=== PATIENT | female | born 2000 | race Native Hawaiian/Other Pacific Islander ===

== ENCOUNTER 2019-09-12 16:14 | Emergency (ER) | payer SELFPAY ==
[2019-09-12 16:43] LABS: BASOPHILS # (AUTO) 0.1 10^3/uL (0.0-0.1); BASOPHILS % (AUTO) 0.5 %; EOSINOPHILS # (AUTO) 0.1 10^3/uL (0.0-0.7); EOSINOPHILS % (AUTO) 0.3 %; HGB - HEMOGLOBIN 14.1 g/dL (12.0-16.0); LYMPHOCYTES % (AUTO) 6.3 %; MEAN CORPUSCULAR HEMOGLOBIN 30.9 pg (27.0-31.0); MEAN CORPUSCULAR HGB CONC 32.7 g/dL (32.0-36.0); MEAN CORPUSCULAR VOLUME 94.3 fL (81.0-99.0); MEAN PLATELET VOLUME 7.7 fL (7.9-10.8); MONOCYTES # (AUTO) 1.3 10^3/uL (0.0-1.0); MONOCYTES % (AUTO) 8.6 %; NEUTROPHILS # (AUTO) 12.8 10^3/uL (1.5-6.6); NEUTROPHILS % (AUTO) 83.6 %; PLT - PLATELET COUNT 253 10^3/uL (130-450); RED BLOOD COUNT 4.57 10^6/uL (4.20-5.40); RED CELL DISTRIBUTION WIDTH 12.8 % (12.0-15.0); WHITE BLOOD COUNT 15.3 x10^3/uL (4.8-10.8)
[2019-09-12 16:56] LABS: ALBUMIN 3.9 g/dL (3.2-5.5); BILIRUBIN,TOTAL 0.8 mg/dL (0.2-1.0); CALCIUM 8.9 mg/dL (8.5-10.3); CREATININE 0.8 mg/dL (0.4-1.0); TOTAL PROTEIN 7.7 g/dL (6.7-8.2)
[2019-09-12] MEDS ORDERED: HYDROmorphone 1 MG/ML CARPUJECT IVP STA (17:25)
[2019-09-12] MEDS ORDERED: SODIUM CHLORIDE 0.9% 1,000 ML IV ONE (17:29)
--- NOTE | 2019-09-12 17:29 | ED Physician Documentation ---
History of Present Illness - Stated complaint Stated Complaint: RLQ PX, NAUSEA, FEVER, CHILLS - Chief complaint Chief Complaint: Abd Pain - History obtained from History obtained from: Patient, Friend - History of Present Illness Timing: Last night Pain level max: 7 Pain level now: 7 - Additonal information Additional information: 19-year-old female presents to the emergency department with periumbilical pain that started last night and is now moved to the right lower quadrant. Worse with movement and palpation. Better with rest. Decreased appetite today. Has felt feverish at home. Mild nausea but no vomiting. No vaginal bleeding or discharge. Denies any possibility of . Denies any STD exposure. Review of Systems Ten Systems: 10 systems reviewed and negative Constitutional: denies: Chills Ears: denies: Ear pain Nose: denies: Rhinorrhea / runny nose, Congestion Respiratory: denies: Cough GI: denies: Vomiting, Diarrhea, Hematemesis : denies: Dysuria, Frequency, Hesitancy, Hematuria, Now EGA Skin: denies: Rash Musculoskeletal: denies: Neck pain, Back pain Neurologic: denies: Headache PD PAST MEDICAL HISTORY - Past Medical History Past Medical History: No - Past Surgical History Past Surgical History: No - Present Medications Home Medications: Ambulatory Orders Medication Instructions Recorded Confirmed Cefdinir 300 mg PO BID #28 capsule 09/12/19 Ondansetron Odt [Zofran] 4 mg TL Q6H PRN #10 tablet 09/12/19 Oxycodone HCl/Acetaminophen 1 - 2 each PO Q6H PRN #14 tablet 09/12/19 [Percocet 5-325 mg Tablet] - Allergies Allergies/Adverse Reactions: Allergies Allergy/AdvReac Type Severity Reaction Status Date / Time No Known Drug Allergies Allergy Verified 09/12/19 16:18 - Living Situation Living Situation: reports: With family Living Arrangement: reports: At home - Social History Does the pt smoke?: No Does the pt have substance abuse?: No - Family History Family history: reports: Non contributory PD ED PE NORMAL - Vitals Vital signs reviewed: Yes - General General: Alert and oriented X 3, No acute distress, Well developed/nourished - HEENT HEENT: Moist mucous membranes - Neck Neck: Supple, no meningeal sign - Cardiac Cardiac: RRR, Strong equal pulses - Respiratory Respiratory: No respiratory distress, Clear bilaterally - Abdomen Abdomen: Soft, Non distended, Other (Tender to palpation right lower quadrant at McBurney's point. Positive Rovsing, obturator and psoas signs) - Back Back: No CVA TTP, No spinal TTP - Derm Derm: Warm and dry - Extremities Extremities: No edema - Neuro Neuro: Alert and oriented X 3 - Psych Psych: Normal mood, Normal affect Results - Vitals Vitals: Vital Signs - 24 hr 09/12/19 09/12/19 09/12/19 16:18 17:40 19:09 Temperature 36.9 C 36.9 C 38.5 C H Heart Rate 130 H 122 H Respiratory 14 16 Rate Blood Pressure 111/74 115/96 H O2 Saturation 100 98 09/12/19 19:15 Temperature Heart Rate 138 H Respiratory 22 Rate Blood Pressure 118/69 O2 Saturation 98 Oxygen O2 Source Room air - Labs Labs: Laboratory Tests 09/12/19 09/12/19 09/12/19 16:40 16:40 18:03 WBC 15.3 H RBC 4.57 Hgb 14.1 Hct 43.1 MCV 94.3 MCH 30.9 MCHC 32.7 RDW 12.8 Plt Count 253 MPV 7.7 L Neut # (Auto) 12.8 H Lymph # (Auto) 1.0 L [place] # (Auto) 1.3 H Eos # (Auto) 0.1 Baso # (Auto) 0.1 Absolute Nucleated RBC 0.00 Nucleated RBC % 0.0 Sodium 135 Potassium 3.7 Chloride 101 Carbon Dioxide 24 Anion Gap 10.0 BUN 8 Creatinine 0.8 Estimated GFR (MDRD) 91 Glucose 110 H Calcium 8.9 Total Bilirubin 0.8 AST 18 ALT 16 Alkaline Phosphatase 53 Total Protein 7.7 Albumin 3.9 Globulin 3.8 Albumin/Globulin Ratio 1.0 Lipase 27 Urine Color YELLOW Urine Clarity CLEAR Urine pH 7.0 Ur Specific [place] <=1.005 Urine Protein NEGATIVE Urine Glucose (UA) NEGATIVE Urine Ketones NEGATIVE Urine Occult Blood MODERATE H Urine Nitrite NEGATIVE Urine Bilirubin NEGATIVE Urine Urobilinogen 0.2 (NORMAL) Ur Leukocyte Esterase LARGE H Urine RBC 0-5 Urine WBC >25 H Urine WBC Clumps PRESENT Ur Squamous Epith Cells NONE SEEN Urine Bacteria None Seen Ur Microscopic Review INDICATED Urine Culture Comments INDICATED - Rads (name of study) CT abdomen pelvis Radiology: Prelim report reviewed, EMP read contemporaneously, See rad report (Right ureteric mucosal hyperenhancement and pelvic mucosal hyperenhancement, suggestive of pyelitis. Patchy ill-defined foci in right renal parenchyma are concerning for infectious pathology (acute pyelonephritis).) PD MEDICAL DECISION MAKING - ED course Complexity details: reviewed results, re-evaluated patient, considered differential, d/w patient, d/w family ED course: Patient with what appears to be pyelonephritis. Given Rocephin and will place on cefdinir. She is well-appearing, nontoxic. Afebrile. Feels better after pain meds, IV fluids and Rocephin. Will place her on pain medication, nausea medication and antibiotics for home. Patient counseled regarding signs and symptoms for which I believe and urgent re-evaluation would be necessary. Patient with good understanding of and agreement to plan and is comfortable going home at this time This document was made in part using voice recognition software. While efforts are made to proofread this document, sound alike and grammatical errors may occur. Appendix is normal on CT scan Departure - Departure Disposition: 01 Home, Self Care Clinical Impression: Pyelonephritis Condition: Good Instructions: ED Kidney Infec Female Follow-Up: your,doctor in 1 week if not better [Other] Prescriptions: Cefdinir 300 mg PO BID #28 capsule Ondansetron Odt [Zofran] 4 mg TL Q6H PRN #10 tablet PRN Reason: Nausea / Vomiting Oxycodone HCl/Acetaminophen [Percocet 5-325 mg Tablet] 1 - 2 each PO Q6H PRN #14 tablet PRN Reason: pain Comments: Take all antibiotics until gone. Return if you worsen. You should start to feel better in 2 to 3 days. Return especially for worsening fevers, pain or vomiting. Do not drink alcohol or drive while on narcotic pain medicine. Note that many narcotic pain relievers also contain tylenol/acetaminophen. Please ensure that your total dose of acetaminophen from all sources does not exceed 3 grams (3000mg) per day. You may constipated on this medication, take a stool softener such as "Colace" twice a day while you are on it. Also recommend a [id number] laxative such as senna or MiraLAX any day that you do not have a bowel movement. If you received narcotic pain medication in the emergency department, do not drive or operate machinery for the next 24 hours.
[2019-09-12 18:12] LABS: BILIRUBIN,URINE NEGATIVE (NEGATIVE); GLUCOSE, URINE (UA) NEGATIVE (NEGATIVE); KETONES,URINE (UA) NEGATIVE (NEGATIVE); LEUKOCYTE ESTERASE, URINE LARGE (NEGATIVE); NITRITE,URINE NEGATIVE (NEGATIVE); OCCULT BLOOD,URINE MODERATE (NEGATIVE); PROTEIN,URINE NEGATIVE (NEGATIVE); UROBILINOGEN,URINE 0.2 (NORMAL) E.U./dL (NORMAL)
[2019-09-12] MEDS ORDERED: IOVERSOL 320 100 ML VIAL IVP ONE ×2 (18:13→19:01)
[2019-09-12 18:15] LABS: CLARITY,URINE CLEAR (CLEAR)
[2019-09-12 18:23] LABS: BACTERIA,URINE None Seen /HPF (None Seen); RBC,URINE 0-5 /HPF (0-5); SQUAMOUS EPITHELIAL CELL,UR NONE SEEN (<= Few); WBC CLUMPS,URINE PRESENT
--- NOTE | 2019-09-12 18:57 | CT Report ---
Reason: RLQ abd pain Procedure Date: 09/12/2019 Accession Number: [id number] / [id number] Procedure: CT - Abdomen/Pelvis W CPT Code: Final Report FULL RESULT: EXAM: CT ABDOMEN AND PELVIS EXAM DATE: 09/12/2019 06:25 PM. CLINICAL HISTORY: RLQ abd pain. COMPARISONS: None. TECHNIQUE: Routine helical CT imaging was performed through the abdomen and pelvis. IV contrast: 80 cc OPTIRAY 320. Enteric contrast: No. Reconstructions: Coronal and sagittal. In accordance with CT protocol optimization, one or more of the following dose reduction techniques were utilized for this exam: automated exposure control, adjustment of mA and/or KV based on patient size, or use of iterative reconstructive technique. FINDINGS: Lung Bases: Unremarkable. Liver: Normal. No masses. Gallbladder/Bile Ducts: Unremarkable. Spleen: Normal. Pancreas: Normal. Adrenal Glands: Normal. Kidneys: Right ureteric mucosal hyperenhancement and pelvic mucosal hyperenhancement, suggestive of pyelitis. Patchy ill-defined foci in right renal parenchyma are concerning for infectious pathology (acute pyelonephritis). Peritoneal Cavity/Bowel: Normal. No free fluid, free air or adenopathy. No masses or acute inflammatory process. The appendix is well visualized and normal. Pelvic Organs: Normal. The bladder and visualized pelvic organs are within normal limits. Vasculature: No aneurysms or other significant abnormality. Bones: No significant abnormality. Other: None. IMPRESSION: Right ureteric mucosal hyperenhancement and pelvic mucosal hyperenhancement, suggestive of pyelitis. Patchy ill-defined foci in right renal parenchyma are concerning for infectious pathology (acute pyelonephritis). [facility]
[2019-09-12] MEDS ORDERED: cefTRIAXone 1 GM VIAL IVP STA (19:00)
[2019-09-12 19:15] VITALS: BP 118/69
[2019-09-12] MEDS ORDERED: ACETAMINOPHEN 325 MG TABLET PO STA (19:21)
== END 2019-09-12 19:33 | disposition home or self-care (01) ==
LOC: ED 16:14
DX: N12 Tubulo-interstitial nephritis, not specified as acute or chronic (principal)
CPT/HCPCS: 36415; 74177; 80053; 81001; 83690; 85025; 87086; 87181; 96374; 96375; 99281; 99284; A9270; J1170; Q9967; 81003